=== PATIENT | male | born 1975 | race Caucasian/White ===

== ENCOUNTER 2017-07-08 08:59 | Outpatient (CLI) | payer OTHER ==
--- NOTE | 2017-07-08 11:12 | RAD ---
RIGHT ANKLE THREE VIEWS: Date: 07-08-17 Comparison: None. History: Twisted ankle, trauma, pain. FINDINGS: Soft tissue swelling overlies the lateral malleolus. There is no displaced fracture or dislocation. T here is enthesophyte formation at the insertion of the Achilles tendon. There is mild dorsal degenera tive osteophyte formation at the talonavicular interspace. IMPRESSION: Lateral soft tissue swelling with no displaced fracture or evidence of dislocation. POS: [facility]
== END 2017-07-08 09:00 | disposition home or self-care (01) ==
LOC: RAD-FRANK 08:59
PROVIDERS: ATTEND Nurse Practitioner Family
DX: M25.571 Pain in right ankle and joints of right foot (principal); M79.89 Other specified soft tissue disorders